=== PATIENT | male | born 1945 | race Caucasian/White ===

== ENCOUNTER 2016-08-26 12:29 | Observation (INO) ==
[2016-08-26] MEDS ORDERED: ONDANSETRON 4 MG/2 ML VIAL IV STA (12:49)
[2016-08-26] MEDS ORDERED: PANTOPRAZOLE 40 MG VIAL IV STA (12:49)
[2016-08-26] MEDS ORDERED: METOCLOPRAMIDE 10 MG/2 ML VIAL IV STA (12:49)
[2016-08-26] MEDS ORDERED: KETOROLAC 30 MG/1 ML VIAL IV STA (12:49)
--- NOTE | 2016-08-26 12:59 | Emergency Department Note ---
Arrival - Arrival Chief Complaint: Extremity Problem Stated Complaint: right sided pain ED Nursing Triage Note: C/O PAIN UNDER RIGHT SHOULDER BLADE WITH ONSET COUPLE MONTHS AGO. PT STATES HE HAS BEEN SEEN FOR SAME COMPLAINT BEFORE. DENIES OTHER COMPLAINTS Mode of Arrival: Ambulatory Limitations: No Limitations Source: Patient Time Seen by Provider: 08/26/16 12:49 - History of Present Illness HPI Narrative: This 70-year-old white male presents with 3 months of right upper trunk pain which can be adjacent to the thoracic spine 1 day and then the next the right upper quadrant and then the next the right lower chest. He is seen several doctors all of which have told him it is probably his gallbladder; however, after 3 months it is hard to believe that no one pursued this given the degree of discomfort the patient experiences every day. The patient denies shortness of breath, diaphoresis, left-sided chest pain, chills, fever, nausea, or vomiting. He does have significant complaints of heartburn, belching, and water brash on a daily basis. He also states that certain moves that he makes causes extreme pain but usually in the area of the thoracic spine rather than elsewhere. Currently he appears in no medical distress. Onset (ago): month(s) (Patient presents 3 months post onset of symptoms) Allergies/Adverse Reactions: Allergies Allergy/AdvReac Type Severity Reaction Status Date / Time Sulfa (Sulfonamide Allergy Swelling Verified 07/18/16 18:30 Antibiotics) of Lip/Tongue/Throat Home Medications: Home Medications Medication Instructions Recorded Confirmed Type Albuterol Inhaler [Proventil 2 puff INH Q4H PRN 08/26/16 08/26/16 History Inhaler] Aspirin EC Tab 81 mg PO DAILY 08/26/16 08/26/16 History Atorvastatin [Lipitor] 40 mg PO BEDTIME 08/26/16 08/26/16 History Budesonide/Formoterol 160-4.5 2 puff INH BID 08/26/16 08/26/16 History [Symbicort 160-4.5] Carvedilol 3.125 mg PO DAILY 08/26/16 08/26/16 History Clopidogrel Bisulfate [Clopidogrel] 75 mg PO DAILY 08/26/16 08/26/16 History Fluticasone 50 Mcg Nasal [place] 1 spray BOTH NARES DAILY 08/26/16 08/26/16 History [Flonase Nasal [place]] Gabapentin Cap/Tab [Neurontin 100 mg PO DAILY 08/26/16 08/26/16 History Cap/Tab] Loratadine Tab [Claritin Tab] 10 mg PO DAILY 08/26/16 08/26/16 History Meloxicam 15 mg PO DAILY 08/26/16 08/26/16 History Mometasone Furoate [Asmanex 220 440 mcg INH DAILY 08/26/16 08/26/16 History mcg Twisthaler] Omeprazole 20 mg PO DAILY 08/26/16 08/26/16 History Review of System - Review of System 12 point system: reviewed and no additional remarkable complaints except as stated - Review of System Constitutional: Present: as per HPI Respiratory: Present: as per HPI Cardiovascular: Present: as per HPI Gastrointestinal: Present: as per HPI Musculoskeletal: Present: as per HPI Medical,Surgical,& Family Hx - Medical History Cardio: History of: Hypertension Neurology: History of: TIA Endocrine: History of: Endocrine Problems (hypoglycemia) Respiratory: History of: Asthma Other: History of: Miscellaneous Medical Problems (varacose veins) - Family History Family History: Reports;: Family Cancer - Social History Smoking Status: Never smoker Frequency of Alcohol Use: None Type of Drug Use: None Exam Physical Examination: GENERAL: Well developed, well nourished elderly white male in no acute distress. HEENT: Normocephalic. No trauma. Moist mucous membranes. EOMI. PERRLA. ENT NML NECK: Supple. No adenopathy. CARDIAC: Regular. No murmurs. Heart rate 71 CHEST: Clear to auscultation. No respiratory distress. O2 sat 98% ABDOMEN: Soft. Minimal right upper quadrant tenderness with extreme palpation. Active bowel sounds. EXTREMITIES: No trauma. Normal ROM. No pedal edema. Significant tenderness with a patch of muscular spasm along the thoracic spine at the right mid scapular level SKIN: No diaphoresis. No rash. NEURO: Alert. Neuro intact. No focal deficits. Vital Signs: Vital Signs Temperature 98.1 F 08/26/16 12:34 Pulse Rate 71 08/26/16 12:34 Respiratory Rate 18 08/26/16 12:34 Blood Pressure 155/89 08/26/16 12:34 O2 Sat by Pulse Oximetry 98 08/26/16 12:34 Course - Consultations Consultation #1: Dr. Pinon consulted for gallbladder disease Consultation #2: Dr. Pinon to admit for elective cholecystectomy Results - Labs CBC & BMP: 08/26/16 12:57 08/26/16 12:57 Labs: I have reviewed the laboratory noted its normal results. - Impressions EKG: Sinus rhythm at 69 with normal SD interval and QRS duration. Normal ST segments normal EKG. - Diagnostic Findings Procedure: Chest x-ray: image reviewed by me, report reviewed by me (Normal chest), Ultrasound: image reviewed by me, report reviewed by me (Gallbladder revealed gallbladder wall thickening with debbie-Sydney fluid but no stones), X-ray : image reviewed by me, report reviewed by me (Thoracic spine revealed anterior wedging at mid thoracic level) Disposition Clinical Impression: Cholecystitis, Thoracic spine wedging/DJD Case discussed with: patient, patient's family Disposition: Still a Patient Condition: Stable Time of Disposition: 15:40
[2016-08-26 13:04] LABS: Basophils # 0.1 10*3/uL (0.0-0.2); Basophils % 0.7 % (0.0-0.8); Eosinophils # 0.3 10*3/uL (0.0-0.87); Eosinophils % 3.3 % (0.00-10.9); Hematocrit 47.7 VOL% (42.0-52.0); Hemoglobin 16.5 GM/DL (14.0-18.0); Immature Granulocytes % 0.6 %; Immature Granulocytes Absolute 0.05 #; Lymphocytes # 2.5 10*3/uL (1.4-4.0); Lymphocytes % 29.6 % (21.2-54.2); Mean Corpuscular HGB Conc 34.6 GM/DL (32-36); Mean Corpuscular Hemoglobin 30 PG (27-34); Mean Corpuscular Volume 86.6 FL (87-102); Mean Platelet Volume 9.6 FL (9.6-12.0); Monocytes # 0.6 10*3/uL (0.11-0.8); Monocytes % 7.2 % (1.7-12.7); Neutrophils % 58.6 % (38.7-73.9); Platelet Count 229 T/CUMM (130-400); Red Blood Count 5.51 MC/CUMM (3.8-5.5); Red Cell Distribution Width 13.1 % (9.3-17.3); White Blood Count 8.5 T/CUMM (4-12)
[2016-08-26 13:28] LABS: Albumin 3.7 G/DL (3.4-5.0); Bilirubin,Total 0.5 MG/DL (0.2-1.0); Calcium 9.1 MG/DL (8.5-10.1); Potassium 3.9 MMOL/L (3.5-5.1); Total Protein 6.8 G/DL (6.4-8.3); Troponin I Only < 0.015 NG/ML (0.00-0.045)
[2016-08-26] MEDS ORDERED: PANTOPRAZOLE 40 MG VIAL IV ONE (13:32)
[2016-08-26] MEDS ORDERED: METOCLOPRAMIDE 10 MG/2 ML VIAL ONE (13:32)
[2016-08-26] MEDS ORDERED: ONDANSETRON 4 MG/2 ML VIAL ONE (13:32)
[2016-08-26] MEDS ORDERED: KETOROLAC 30 MG/1 ML VIAL ONE (13:33)
--- NOTE | 2016-08-26 13:37 | XRay Report ---
PA and lateral chest. Indication: Chest pain. Comparison: July 18, 2016. The heart and mediastinal contours are unremarkable. The pulmonary vasculature is normal. There is no consolidation, pneumothorax, or pleural effusion. Degenerative changes are noted within the shoulders and thoracic spine. Impression: No acute abnormality. PROCEDURE INTERPRETED AT [facility] DEPARTMENT OF RADIOLOGY Final Report Signed by: Dr. Blossom Joe
--- NOTE | 2016-08-26 13:39 | XRay Report ---
Thoracic spine, 4 views. Indication: Back pain. There is a very slight lower thoracic scoliosis, convex to the left. The AP view also demonstrates moderate lateral osteophytes along the right aspect of the spinal column. The lateral view demonstrates normal alignment. Moderate anterior osteophytes are noted at multiple levels. Very slight anterior wedging of mid thoracic vertebra were present on a previous CT of the chest PE study dated July 18, 2016. No lytic or blastic lesion. Impression: Moderate spondylosis. Slight chronic anterior wedging of mid thoracic vertebra. PROCEDURE INTERPRETED AT [facility] DEPARTMENT OF RADIOLOGY Final Report Signed by: Dr. Blossom Joe
--- NOTE | 2016-08-26 14:04 | Ultrasound Report ---
Right upper quadrant ultrasound. Indication: Right upper quadrant pain. Comparison: August 18, 2016. The liver is normal in size and parenchymal echogenicity. No focal liver lesions or intrahepatic biliary ductal dilatation. The common duct measures 4 mm. The gallbladder is contracted. There is wall thickening present at 4 mm. There is fluid around the gallbladder. There is tenderness over the gallbladder. The right kidney presents a normal appearance. The pancreas is obscured by bowel gas. No ascites is seen. Impression: The appearance of the gallbladder has changed. There is more pronounced wall thickening noted at 4 mm, as well as some para cholecystic fluid and tenderness over the gallbladder. No stones are visible, and the gallbladder is partially contracted. Acalculus cholecystitis should be considered clinically. These type findings can be secondary to liver disease, however there are no signs of liver disease on this exam. PROCEDURE INTERPRETED AT [facility] DEPARTMENT OF RADIOLOGY Final Report Signed by: Dr. Blossom Joe
[2016-08-26 14:34] LABS: Apearance,Urine CLEAR (Clear); Bilirubin,Urine Negative (Negative); Blood, Urine Negative (Negative); Glucose,Urine (UA) Negative (Negative); Ketones,Urine Negative (Negative); Mucus,Urine Occasional /LPF (Occasional); Nitrite,Urine Negative (Negative); Protein,Urine Negative; RBC,Urine <1 /HPF (0-4); Squamous Epithelial Cell,Urine Occasional /HPF (0-10); Urine Color Yellow (Yellow); Urine Specific Gravity 1.016 (1.001-1.035); Urine Urobilinogen < 2.0 EU/DL (0.2-1.0); WBC,Urine <1 /HPF (0-6)
--- NOTE | 2016-08-26 15:40 | General Surg History&Physical ---
Assessment and Plan (1) Cholecystitis Status: Acute Assessment and plan: This patient has cholecystitis with normal LFTs. I recommended laparoscopic cholecystectomy. The patient is on Plavix for TIAs and there is a slight increased risk of bleeding but I do not think it is prohibitive. Patient appears to be a good risk candidate for surgery. He also has an umbilical hernia that I recommended repairing at the time of the surgery because it is incarcerated. Patient agrees with all this. I discussed the risks, benefits, and alternatives of the operations proposed and the expected outcomes have been reviewed. In particular, I discussed the risk of bleeding, infection, hernias of the abdominal wall, injury to the intestines or liver, pancreatitis, dropped or retained stones in the abdomen, bile leak, and bile duct injury. The patient 's questions have been answered. I have also discussed the risks of hernia repair Current Visit: Yes History of Present Illness Chief complaint: Abdominal pain History of present illness: Mr. Krause is a 70 year old male with history of asthma and TIAs for which she is on Plavix presents to the hospital with symptoms of acute cholecystitis with confirmed by ultrasound. Home Medications Medication Instructions Recorded Confirmed Type Albuterol Inhaler [Proventil 2 puff INH Q4H PRN 08/26/16 08/26/16 History Inhaler] Aspirin EC Tab 81 mg PO DAILY 08/26/16 08/26/16 History Atorvastatin [Lipitor] 40 mg PO BEDTIME 08/26/16 08/26/16 History Budesonide/Formoterol 160-4.5 2 puff INH BID 08/26/16 08/26/16 History [Symbicort 160-4.5] Carvedilol 3.125 mg PO DAILY 08/26/16 08/26/16 History Clopidogrel Bisulfate [Clopidogrel] 75 mg PO DAILY 08/26/16 08/26/16 History Fluticasone 50 Mcg Nasal [employer] 1 spray BOTH NARES DAILY 08/26/16 08/26/16 History [Flonase Nasal [employer]] Gabapentin Cap/Tab [Neurontin 100 mg PO DAILY 08/26/16 08/26/16 History Cap/Tab] Loratadine Tab [Claritin Tab] 10 mg PO DAILY 08/26/16 08/26/16 History Meloxicam 15 mg PO DAILY 08/26/16 08/26/16 History Mometasone Furoate [Asmanex 220 440 mcg INH DAILY 08/26/16 08/26/16 History mcg Twisthaler] Omeprazole 20 mg PO DAILY 08/26/16 08/26/16 History Allergies Allergy/AdvReac Type Severity Reaction Status Date / Time Sulfa (Sulfonamide Allergy Swelling Verified 07/18/16 18:30 Antibiotics) of Lip/Tongue/Throat Medical,Surgical,& Family Hx - Medical History Cardio: History of: Hypertension Neurology: History of: TIA Endocrine: History of: Endocrine Problems (hypoglycemia) Respiratory: History of: Asthma Other: History of: Miscellaneous Medical Problems (varacose veins) - Family History Family History: Reports;: Family Cancer - Social History Smoking Status: Never smoker Frequency of Alcohol Use: None Type of Drug Use: None Exam - Constitutional Vitals: Period Temp Pulse Resp BP Sys/Salazar Pulse Ox Last 24 Hr 98.1 F 71 18 155/89 98 General appearance: no acute distress, over weight - Head Head exam: Present: normal inspection, normocephalic - Eye Eye exam: Present: EOMI Pupils: Present: CARLOS - ENT ENT exam: Present: normal exam Mouth exam: Present: normal external inspection, normal voice - Neck Neck exam: Present: normal inspection, trachea midline - Respiratory Respiratory exam: Present: clear to auscultation bilaterally. Absent: accessory muscle use, chest wall tenderness - Cardiovascular Cardiovascular exam: Present: RRR. Absent: systolic murmur, tachycardia - GI/Abdominal GI/Abdominal exam: Present: Dee's sign, tenderness, soft. Absent: guarding, rebound - Extremities Exam Extremities exam: Present: normal inspection, normal capillary refill - Back Exam Back exam: Present: normal inspection - Neurological Exam Neurological exam: Present: alert, oriented X3 Speech: Present: normal - Skin Skin exam: Present: normal color, warm - Constitutional Constitutional: Present: as per HPI - EENT Nose, mouth and throat: Present: as per HPI - Cardiovascular Cardiovascular: Present: as per HPI - Respiratory Respiratory: Present: as per HPI - Gastrointestinal Gastrointestinal: Present: as per HPI - Genitourinary Genitourinary: Present: as per HPI - Musculoskeletal Musculoskeletal: Present: as per HPI - Neurological Neurological: Present: as per HPI - Endocrine Endocrine: Present: as per HPI Hematologic/Lymphatic: Present: as per HPI Results - Labs CBC & BMP: 08/26/16 12:57 07/08/17 12:57 - Diagnostic Findings Procedure: Ultrasound: report reviewed by me (Acalculous cholecystitis with wall thickening and pericholecystic fluid.)
[2016-08-26] MEDS ORDERED: HYDROmorphone 2 MG/1 ML VIAL IV PRN (17:10)
[2016-08-26] MEDS ORDERED: ONDANSETRON 4 MG/2 ML VIAL IV PRN (17:10)
[2016-08-26] MEDS ORDERED: ACETAMINOPHEN 325 MG TABLET PO PRN (17:10)
[2016-08-26] MEDS ORDERED: PROMETHAZINE 25 MG/1 ML VIAL IM PRN (17:10)
[2016-08-26] MEDS: LACTATED RINGERS 1,000 ML IV SCH (18:55)
[2016-08-26] MEDS: PIPERACILLIN/TAZOBACTAM 3,375 MG in SODIUM CHLORIDE 0.9% 100 ML IV SCH (18:55)
[2016-08-26] MEDS ORDERED: ALBUTEROL 2.5 MG/3 ML NEB RESP TX PRN (19:00)
[2016-08-26] MEDS: BUDESONIDE/FORMOTEROL 160-4.5 INHALER 6 GM INH SCH (20:22)
[2016-08-26] MEDS: ATORVASTATIN 40 MG TABLET PO SCH (20:22)
[2016-08-27] MEDS: LACTATED RINGERS 1,000 ML IV SCH (01:16)
[2016-08-27] MEDS: PIPERACILLIN/TAZOBACTAM 3,375 MG in SODIUM CHLORIDE 0.9% 100 ML IV SCH ×2 (02:40→16:20)
[2016-08-27] MEDS ORDERED: FAMOTIDINE 20 MG TABLET PO ONE (07:00)
[2016-08-27] MEDS ORDERED: IPRATROPIUM 500 MCG/2.5 ML NEB RESP TX ONE (07:00)
[2016-08-27] MEDS ORDERED: LORazepam 1 MG TABLET PO ONE (07:00)
[2016-08-27] MEDS ORDERED: ALBUTEROL 2.5 MG/3 ML NEB RESP TX ONE (07:00)
--- NOTE | 2016-08-27 08:58 | General Surgery Progress Note ---
Assessment and Plan (1) Cholecystitis Status: Acute Assessment and plan: Plan for laparoscopic cholecystectomy with umbilical hernia repair today. Current Visit: Yes Subjective Patient reports: Present: no new complaints, feels better, afebrile Exam - Constitutional Vitals: Period Temp Pulse Resp BP Sys/Salazar Pulse Ox Last 24 Hr 97.4 F-98.1 F 67-75 17-19 118-155/65-97 93-98 General appearance: no acute distress, over weight - Head Head exam: Present: normal inspection, normocephalic - Eye Eye exam: Present: EOMI Pupils: Present: CARLOS - ENT ENT exam: Present: normal exam Mouth exam: Present: normal external inspection, normal voice - Neck Neck exam: Present: normal inspection, trachea midline - Respiratory Respiratory exam: Present: clear to auscultation bilaterally. Absent: accessory muscle use, chest wall tenderness - Cardiovascular Cardiovascular exam: Present: RRR. Absent: systolic murmur, tachycardia - GI/Abdominal GI/Abdominal exam: Present: normal bowel sounds, tenderness, soft. Absent: Dee's sign, rebound - Extremities Exam Extremities exam: Present: normal inspection, normal capillary refill - Back Exam Back exam: Present: normal inspection - Neurological Exam Neurological exam: Present: alert, oriented X3 Speech: Present: normal - Skin Skin exam: Present: normal color, warm Results - Labs CBC & BMP: 08/26/16 12:57 08/26/16 12:57
[2016-08-27] MEDS ORDERED: NON-FORMULARY MEDICATION (Omeprazole [Omeprazole] 20 MG) PO SCH (09:00)
[2016-08-27] MEDS: CARVEDILOL 3.125 MG TABLET PO SCH (09:45)
[2016-08-27] MEDS ORDERED: ONDANSETRON 4 MG/2 ML VIAL ONE ×2 (11:35→13:18)
[2016-08-27] MEDS ORDERED: GLYCOPYRROLATE 0.4 MG/2 ML VIAL ONE (11:35)
[2016-08-27] MEDS ORDERED: NEOSTIGMINE 10 MG/10 ML VIAL ONE (11:35)
[2016-08-27] MEDS ORDERED: LIDOCAINE 1% 5 ML VIAL ONE (11:35)
[2016-08-27] MEDS ORDERED: ROCURONIUM 100 MG/10 ML VIAL IV ONE (11:35)
[2016-08-27] MEDS ORDERED: PROPOFOL 200 MG/20 ML VIAL IV ONE (11:35)
[2016-08-27] MEDS ORDERED: SUCCINYLCHOLINE 200 MG/10 ML VIAL ONE (11:35)
[2016-08-27] MEDS ORDERED: BUPIVACAINE 0.25% /EPI 10 ML VIAL ONE (11:58)
[2016-08-27] MEDS ORDERED: LIDOCAINE 1%/EPI INJ 20 ML VIAL ONE (11:58)
[2016-08-27] MEDS ORDERED: TISSUE ADHESIVE 1 EACH APPLICATOR TOP ONE (12:23)
[2016-08-27] MEDS ORDERED: BACITRACIN OINT 0.9 GM PACK TOP ONE (12:46)
--- NOTE | 2016-08-27 12:56 | Operative Note ---
Date of procedure: 08/27/16 Pre-op diagnosis: Symptomatic cholelithiasis with symptomatic umbilical hernia Post-op diagnosis: same Procedure: Preoperative diagnosis 1. Symptomatic cholelithiasis 2. Symptomatic umbilical hernia chronically incarcerated Postoperative diagnosis Same Procedures performed 1. Laparoscopic cholecystectomy 2. Primary repair of umbilical hernia Findings Acute and chronic cholecystitis was seen. The critical view of safety was obtained prior to placing clips on the cystic duct and cystic artery. The umbilical hernia was repaired primarily with 0 Vicryl sutures. The neck of the hernia defect measured 1 cm Complications None apparent Specimen Gallbladder Anesthesia GETA Blood loss 5 mL Indications The patient was admitted with symptomatic cholelithiasis and a symptomatic incarcerated umbilical hernia. The risks, benefits, and alternatives of the operation were discussed with the patient in detail, and the expected outcomes were reviewed. In particular, the risk of bowel injury, liver injury, bile duct leak and bile duct injury, as well as pancreatitis and retained or drop stones were discussed in detail. All the patient's questions were answered. He elected to proceed with the operation. Description of procedure The patient was taken to the operating room and transferred to the operating table in the supine position. Pressure points were padded and SCDs were placed to bilateral lower extremities. General endotracheal anesthesia was administered. The abdomen was prepped chlorhexidine and draped sterilely. Preoperative antibiotics were administered, a timeout was performed. The abdomen was entered in an infraumbilical location with an open technique. Local anesthetic was administered and an 11 blade scalpel was used to make an infraumbilical incision. The hernia sac was dissected out and the neck of the hernia was dissected at the fascial level measuring about 1 cm. The umbilical stalk was from the hernia sac with electrocautery. The fascial edges were freed up in a 11 mm Trocar Was Placed. The abdomen was insufflated to 15 mmHg with an initial insufflation pressure of 2 mmHg. Diagnostic laparoscopy was performed. There is no evidence of Veress needle or trocar injury. The patient was placed in reverse Trendelenburg and left side rolled down position. Under direct visualization, and after local anesthetic was administered, a 5 mm midepigastric trocar and 2 right subcostal 5 mm trochars were placed. The gallbladder was chronically inflamed with adhesions between the omentum and the gallbladder present. The adhesions were taken down with electrocautery and sharp dissection. The gallbladder was grasped at the fundus and infundibulum. The cystic plate peritoneum was dissected into the critical view of safety was obtained. The cystic duct and cystic artery were clipped twice initially and once laterally and divided laparoscopically with scissors between clips. Gallbladder was removed from the gallbladder fossa using hook electrocautery. The gallbladder was placed in a Endo Catch retrieval bag through the 11 mm trocar and removed through the trocar with no significant fascial extension of the incision. The gallbladder fossa was suction irrigated until the effluent was clear. The CO2 was released from the abdomen and the trochars were removed. The umbilical hernia defect was closed with interrupted 0 Vicryl sutures in the umbilical stalk was reapproximated to the fascia with 4-0 Monocryl sutures. The skin incisions were closed with 4-0 Monocryl subcuticular suture and sterile skin glue. A compressive gauze dressing was placed at the bellybutton to assist in prevention of postoperative seroma. The patient was awakened from anesthesia and transferred to recovery. Postoperative plan Advance diet as tolerated Pain control Anesthesia: RENE, local Surgeon / Physician: Aries Pinon Estimated blood loss: minimal Specimens: other (gallbladder) Condition: stable Disposition: PACU Results - Labs CBC & BMP: 08/26/16 12:57 08/26/16 12:57 Discharge Plan - Discharge Data Disposition: Disch To Home/Self Care Condition at Discharge: Stable Discharge Diet: advance to your usual diet Activity: no lifting Hygiene: may shower Weight Bearing at Discharge: weight bear as tolerated Driving: other (Do not drive or operate heavy machinery for at least 24 hours and after you are off of narcotic pain medications.) Contact your physician if you experience:: fever over 101, Difficulty voiding, Redness or swelling, Nausea/Vomiting, Shortness of breath, Bleeding, pain uncontrolled by pain medications Wound / Dressing Care Instructions: It is okay to shower. Do not scrub the incision aggressively or submerge it under water. Remove the gauze dressing at the bellybutton in 2 days and it is okay to shower afterwards. Place a compressive cotton ball dressing in the bellybutton and secure with tight tape. Do this until you are seen back in clinic. - Discharge Medications [place]apentin Cap/Tab [Neurontin Cap/Tab] 100 mg PO DAILY capsule HYDROcodone/ACETAMIN 7.5-325 [[place] 7.5-325] 1 tablet PO Q4H PRN #30 tablet PRN Reason: Pain Moderate (4-7) Budesonide/Formoterol 160-4.5 [Symbicort 160-4.5] 2 puff INH BID inhaler Continue Clopidogrel Bisulfate [Clopidogrel] 75 mg PO DAILY Aspirin EC Tab 81 mg PO BEDTIME Meloxicam 15 mg PO DAILY Fluticasone 50 Mcg Nasal [place] [Flonase Nasal [place]] 1 spray BOTH NARES DAILY Carvedilol 3.125 mg PO DAILY Loratadine Tab [Claritin Tab] 10 mg PO DAILY Atorvastatin [Lipitor] 40 mg PO BEDTIME Albuterol Inhaler [Proventil Inhaler] 2 puff INH Q4H PRN PRN Reason: Shortness Of Breath/Wheezing Mometasone Furoate [Asmanex 220 mcg Twisthaler] 440 mcg INH DAILY - Follow Up or Referral Follow Up: Aries Pinon MD [Physician] - 2 Weeks - Forms/Instructions
[2016-08-27] MEDS ORDERED: HYDROmorphone 2 MG/1 ML VIAL ONE (13:18)
[2016-08-27] MEDS ORDERED: hydrALAZINE 20 MG/1 ML VIAL ONE (13:18)
[2016-08-27] MEDS: HYDROmorphone 2 MG/1 ML VIAL IV PRN ×2 (13:20→14:00)
[2016-08-27] MEDS ORDERED: ONDANSETRON 4 MG/2 ML VIAL IV PRN (13:22)
[2016-08-27] MEDS ORDERED: SODIUM CHLORIDE 0.9% 1,000 ML IV SCH (13:30)
[2016-08-27] MEDS ORDERED: ROPIVACAINE 0.5% 30 ML VIAL ONE (13:50)
[2016-08-27] MEDS ORDERED: ACETAMINOPHEN 1,000 MG/100 ML VIAL IV ONE (14:20)
[2016-08-27] MEDS ORDERED: KETOROLAC 30 MG/1 ML VIAL ONE ×2 (14:20→15:22)
--- NOTE | 2016-08-27 14:28 | EKG Report ---
Stationary ECG Study [facility] ER Test Date: 08/26/2016 1:34:35 PM Pat Name: KENDALL BAIG Department: Room: 337 Gender: M Group President: : 1945 Requested by: Yoel Dinero Order Number: [id number] Reading MD: CHERYLE ESQUIVEL Intervals [place] Rate: 69 P: -5 ID: [id number] QRS: 24 QRSD: 86 T: 7 QT: 374 QTc: 393 Interpretive Statements SINUS RHYTHM Electronically Signed On 08-27-16 15:44:15 CDT by CHERYLE ESQUIVEL [email or web address]
[2016-08-27] MEDS ORDERED: ACETAMINOPHEN INJ 1,000 MG in PREMIX 1 EACH IV ONE (14:29)
[2016-08-27] MEDS ORDERED: hydrALAZINE 20 MG/1 ML VIAL IV ONE (14:29)
[2016-08-27] MEDS ORDERED: KETOROLAC 30 MG/1 ML VIAL IV ONE (14:30)
--- NOTE | 2016-08-27 14:33 | XRay Report ---
Portable chest. Indication: Shortness of breath. Postop. Comparison: August 26, 2016. The film is obtained in expiration. There is worsened elevation of the right hemidiaphragm. Linear areas of atelectasis are noted within both lung bases. Vascular crowding. No consolidation. Impression: Expiratory chest. Basilar atelectasis. PROCEDURE INTERPRETED AT [facility] DEPARTMENT OF RADIOLOGY Final Report Signed by: Dr. Blossom Joe
[2016-08-27] MEDS ORDERED: KETOROLAC 30 MG/1 ML VIAL IM ONE (15:36)
[2016-08-27] MEDS ORDERED: ALBUTEROL/IPRATROPIUM 3 ML NEB RESP TX ONE (15:37)
[2016-08-27] MEDS: MOMETASONE 220 MCG/PUFF INHALER 14 DOSE INH SCH (16:20)
[2016-08-27] MEDS: ASPIRIN EC 81 MG TABLET PO SCH (16:20)
[2016-08-27] MEDS: FLUTICASONE 50 MCG NASAL SPRAY 16 GM BOTTLE BOTH NARES SCH (16:21)
[2016-08-27] MEDS: MELOXICAM 7.5 MG TABLET PO SCH (16:21)
[2016-08-27] MEDS: PANTOPRAZOLE 40 MG TABLET PO SCH (16:21)
[2016-08-27] MEDS: LORATADINE 10 MG TABLET PO SCH (16:21)
[2016-08-27] MEDS: GABAPENTIN 100 MG CAPSULE PO SCH (16:21)
[2016-08-27] MEDS: BUDESONIDE/FORMOTEROL 160-4.5 INHALER 6 GM INH SCH ×2 (16:22→21:03)
[2016-08-27] MEDS: ENOXAPARIN 40 MG/0.4 ML SYRINGE SUBCUT SCH (16:22)
[2016-08-27] MEDS: DEXT 5% NACL 0.45% KCL 20 MEQ 20 MEQ/1,000 ML BAG IV SCH ×2 (18:01→19:04)
[2016-08-27] MEDS ORDERED: MIDAZOLAM 2 MG/2 ML VIAL ONE (19:21)
[2016-08-27] MEDS ORDERED: fentaNYL 100 MCG/2 ML VIAL ONE (19:21)
[2016-08-27] MEDS: ATORVASTATIN 40 MG TABLET PO SCH (21:03)
[2016-08-28] MEDS: DEXT 5% NACL 0.45% KCL 20 MEQ 20 MEQ/1,000 ML BAG IV SCH (02:09)
[2016-08-28 05:59] LABS: Basophils % 0.3 % (0.0-0.8); Eosinophils # 0.1 10*3/uL (0.0-0.87); Eosinophils % 0.9 % (0.00-10.9); Hematocrit 37.9 VOL% (42.0-52.0); Hemoglobin 12.4 GM/DL (14.0-18.0); Immature Granulocytes % 0.4 %; Immature Granulocytes Absolute 0.04 #; Lymphocytes # 1.8 10*3/uL (1.4-4.0); Lymphocytes % 18.1 % (21.2-54.2); Mean Corpuscular HGB Conc 32.7 GM/DL (32-36); Mean Corpuscular Hemoglobin 29 PG (27-34); Mean Corpuscular Volume 89.4 FL (87-102); Mean Platelet Volume 10.3 FL (9.6-12.0); Monocytes # 0.8 10*3/uL (0.11-0.8); Monocytes % 7.4 % (1.7-12.7); Neutrophils # 7.4 10*3/uL (1.4-7.4); Neutrophils % 72.9 % (38.7-73.9); Platelet Count 183 T/CUMM (130-400); Red Blood Count 4.24 MC/CUMM (3.8-5.5); Red Cell Distribution Width 13.4 % (9.3-17.3); White Blood Count 10.1 T/CUMM (4-12)
[2016-08-28 06:46] LABS: Hypochromasia 1+; Platelet Estimate Adequate
[2016-08-28 08:02] LABS: Calcium 8.5 MG/DL (8.5-10.1); Magnesium 1.9 MG/DL (1.8-2.4); Osmolality,Calculated 276.5 MOS/KG (273-304); Potassium 3.8 MMOL/L (3.5-5.1)
[2016-08-28] MEDS: GABAPENTIN 100 MG CAPSULE PO SCH (09:12)
[2016-08-28] MEDS: MELOXICAM 7.5 MG TABLET PO SCH (09:12)
[2016-08-28] MEDS: CARVEDILOL 3.125 MG TABLET PO SCH (09:13)
[2016-08-28] MEDS: LORATADINE 10 MG TABLET PO SCH (09:14)
[2016-08-28] MEDS: PANTOPRAZOLE 40 MG TABLET PO SCH (09:14)
[2016-08-28] MEDS: ASPIRIN EC 81 MG TABLET PO SCH (09:14)
--- NOTE | 2016-08-28 09:14 | Discharge Summary ---
Hospital Course - Hospital Course Hospital Course: Mr. Krause is a 70-year-old male with history of asthma and TIAs on Plavix admitted by Dr. Pinon with acute cholecystitis confirmed by ultrasound. He was taken to the OR on 08/27/2016 for laparoscopic cholecystectomy and primary repair of umbilical hernia by Dr. Pinon. Patient is doing very well postoperatively. He is ambulating, tolerating a diet, and his pain is well controlled. His abdomen is soft and appropriately tender and his incisions look good. He will be discharged home with some pain medicine and a 2 week follow-up with Dr. Pinon. Care coordination, chart review, and completed discharge paperwork took approximately 30 minutes. - Time spent with patient Time with patient DS: Greater than 30 minutes Diagnosis - Discharge Diagnosis (1) Acute cholecystitis Status: Acute (2) Umbilical hernia repair Status: Acute (3) Asthma Status: Acute (4) History of TIAs Status: Acute Specialty Discharge - Follow Up or Referrals Follow up with: Aries Pinon MD [Physician] - 2 Weeks Discharge Plan - Discharge Data Disposition: Disch To Home/Self Care Condition at Discharge: Stable Discharge Diet: advance to your usual diet Activity: increase activity as tolerated, no lifting Hygiene: may shower Driving: other (no driving if taking pain pills) Contact your physician if you experience:: fever over 101, Nausea/Vomiting - Discharge Medications New [place]ap[place] Cap/Tab [Neurontin Cap/Tab] 100 mg PO DAILY capsule HYDROcodone/ACETAMIN 7.5-325 [[place] 7.5-325] 1 tablet PO Q4H PRN #30 tablet PRN Reason: Pain Moderate (4-7) Budesonide/Formoterol 160-4.5 [Symbicort 160-4.5] 2 puff INH BID inhaler Continue Clopidogrel Bisulfate [Clopidogrel] 75 mg PO DAILY Aspirin EC Tab 81 mg PO BEDTIME Meloxicam 15 mg PO DAILY Fluticasone 50 Mcg Nasal [place] [Flonase Nasal [place]] 1 spray BOTH NARES DAILY Carvedilol 3.125 mg PO DAILY Loratadine Tab [Claritin Tab] 10 mg PO DAILY Atorvastatin [Lipitor] 40 mg PO BEDTIME Albuterol Inhaler [Proventil Inhaler] 2 puff INH Q4H PRN PRN Reason: Shortness Of Breath/Wheezing Mometasone Furoate [Asmanex 220 mcg Twisthaler] 440 mcg INH DAILY - Follow Up or Referral Follow Up: Aries Pinon MD [Physician] - 2 Weeks - Forms/Instructions Instructions: Laparoscopic Cholecystectomy (DC) Exam - Constitutional Vitals: Period Temp Pulse Resp BP Sys/Salazar Pulse Ox Last 24 Hr 97.4 F-99.2 F 57-101 16-20 125-168/62-110 90-97 Exam: 70-year-old male, no acute distress, alert and oriented Chest clear CV regular rate and rhythm Abdomen soft, appropriately tender, incisions look good Extremities no edema Discharge Results Labs on day of discharge: Labs from last 24 hours 08/28/16 08/28/16 06:38 05:33 WBC 10.1 RBC 4.24 D Hgb 12.4 L D Hct 37.9 L MCV 89.4 MCH 29 MCHC 32.7 RDW 13.4 Plt Count 183 D MPV 10.3 Neut % (Auto) 72.9 Lymph % (Auto) 18.1 L [place] % (Auto) 7.4 Eos % (Auto) 0.9 Baso % (Auto) 0.3 Neut # (Auto) 7.4 Lymph # (Auto) 1.8 [place] # (Auto) 0.8 Eos # (Auto) 0.1 Baso # (Auto) 0.0 Immature Gran % 0.4 Nucleated RBC % 0.0 Immature Gran # 0.04 Nucleated RBCs # 0.00 Platelet Estimate Adequate Hypochromasia 1+ Sodium 139 Potassium 3.8 Chloride 106 Carbon Dioxide 29 Anion Gap 7.8 BUN 9 Creatinine 1.20 GFR Calculation 77 BUN/Creatinine Ratio 7.00 Glucose 124 H Calculated Osmolality 276.5 Calcium 8.5 Magnesium 1.9 DS: Provider Date of admission: 08/26/16 15:34 Primary care physician: Lewis Angel Attending physician on admission: Aries Pinon MD Discharging clinician: GRAYSON Lee Expected date of discharge: 08/28/16
[2016-08-28] MEDS: FLUTICASONE 50 MCG NASAL SPRAY 16 GM BOTTLE BOTH NARES SCH (09:16)
[2016-08-28] MEDS: MOMETASONE 220 MCG/PUFF INHALER 14 DOSE INH SCH (09:17)
[2016-08-28] MEDS: BUDESONIDE/FORMOTEROL 160-4.5 INHALER 6 GM INH SCH (09:18)
[2016-08-28] MEDS: ENOXAPARIN 40 MG/0.4 ML SYRINGE SUBCUT SCH (09:56)
[2016-08-28 11:43] VITALS: BP 139/79
--- NOTE | 2016-08-30 13:10 | Pathology Report from [facility] ---
[facility] ACCESSION # : [id number] PATIENT NAME : Tracy Baig ORDERING DR : Aries Pinon MD CLINICAL HX: Cholecystitis POST-OP DX: Same SPECIMEN INFO: Gallbladder GROSS DESCRIPTION: Received in formalin labeled GUILHERME BAIG is a 7.5 x 2.8 cm intact gallbladder. The serosa is fatty black bile stained green. The gallbladder wall has a thickness of 0.2 cm. The mucosa is dark green granular with a few yellow polypoid areas present measuring up to 0.2 cm. The lumen contains viscous dark green bile with no stones identified. [employer] sections are submitted in one cassette. DIAGNOSIS FOR TRACY BAIG: GALLBLADDER, CHOLECYSTECTOMY: Chronic cholecystitis. COLLECTED DATE: 08/28/2016 [facility] REPORT DATE: 08/29/2016 ELECTRONICALLY SIGNED BY: Alec Mccabe M.D. 08/29/2016 - 9:28:09 SHERIN
== END 2016-08-28 12:06 | disposition home or self-care (01) ==
LOC: N.EDINP 12:29 → N.ED 12:29 → N.EDINP 14:28 → N.3E 17:07
PROVIDERS: ADMIT Surgery; ATTEND Surgery
PROC: LAPCHOL (2016-08-27 11:35)

== ENCOUNTER 2017-05-22 17:53 | Inpatient (IN) ==
[2017-05-22] MEDS ORDERED: ASPIRIN 325 MG TABLET PO STA (19:09)
[2017-05-22] MEDS ORDERED: ASPIRIN 325 MG TABLET ONE (19:23)
[2017-05-22 20:07] LABS: Basophils # 0.1 10*3/uL (0.0-0.2); Eosinophils # 0.5 10*3/uL (0.0-0.87); Hematocrit 47.7 VOL% (42.0-52.0); Hemoglobin 16.2 GM/DL (14.0-18.0); Immature Granulocytes % 0.6 %; Immature Granulocytes Absolute 0.07 #; Lymphocytes # 3.3 10*3/uL (1.4-4.0); Lymphocytes % 28.1 % (21.2-54.2); Mean Corpuscular Hemoglobin 30 PG (27-34); Mean Corpuscular Volume 87.8 FL (87-102); Mean Platelet Volume 10.1 FL (9.6-12.0); Monocytes % 8.7 % (1.7-12.7); Neutrophils # 6.7 10*3/uL (1.4-7.4); Neutrophils % 57.6 % (38.7-73.9); Platelet Count 239 T/CUMM (130-400); Red Blood Count 5.43 MC/CUMM (3.8-5.5); Red Cell Distribution Width 12.7 % (9.3-17.3); White Blood Count 11.6 T/CUMM (4-12)
[2017-05-22 20:18] LABS: PT Patient Result 10.8 SECS; Partial Thromboplastin Time 26.8 SECS (0-40)
[2017-05-22 20:27] LABS: Apearance,Urine CLEAR (Clear); Bilirubin,Urine Negative (Negative); Blood, Urine Negative (Negative); Glucose,Urine (UA) Negative (Negative); Ketones,Urine Negative (Negative); Nitrite,Urine Negative (Negative); Protein,Urine Negative; Urine Color Straw (Yellow); Urine Specific Gravity 1.009 (1.001-1.035); Urine Urobilinogen < 2.0 EU/DL (0.2-1.0); WBC,Urine <1 /HPF (0-6)
[2017-05-22] MEDS ORDERED: METOPROLOL TARTRATE 25 MG TABLET ONE (20:49)
[2017-05-22 20:56] LABS: Barbiturates Screen,Urine Negative (Negative); Benzodiazepines Screen,Urine Negative (Negative); Cannabinoid Screen,Urine Negative (Negative); Opiate Screen,Urine Negative (Negative); Phencyclidine Screen,Urine Negative (Negative)
[2017-05-22 20:58] LABS: Alanine Aminotransferase 22 U/L (16-61); Albumin 3.9 G/DL (3.4-5.0); Alkaline Phosphatase 70 U/L (45-117); Aspartate Amino Transferase 20 U/L (0-37); Blood Urea Nitrogen 20 MG/DL (7-18); Calcium 9.1 MG/DL (8.5-10.1); Glucose 86 MG/DL (74-106); Osmolality,Calculated 284.1 MOS/KG (273-304); Potassium 3.9 MMOL/L (3.5-5.1); Sodium 142 MMOL/L (136-145); Total Protein 6.8 G/DL (6.4-8.3)
[2017-05-23] MEDS ORDERED: METOPROLOL TARTRATE 25 MG TABLET PO STA (00:06)
[2017-05-23] MEDS ORDERED: ONDANSETRON 4 MG/2 ML VIAL IV PRN (00:45)
[2017-05-23] MEDS ORDERED: MORPHINE 4 MG/1 ML VIAL IV PRN (00:45)
[2017-05-23] MEDS ORDERED: hydrALAZINE 20 MG/1 ML VIAL IV PRN (00:45)
[2017-05-23] MEDS ORDERED: SODIUM CHLORIDE 0.9% 1,000 ML IV SCH (00:45)
[2017-05-23] MEDS ORDERED: ALBUTEROL/IPRATROPIUM 3 ML NEB RESP TX PRN (00:45)
[2017-05-23] MEDS: ALBUTEROL/IPRATROPIUM 3 ML NEB RESP TX SCH ×3 (01:27→13:18)
[2017-05-23 01:47] LABS: Risk Ratio 4.36; VLDL CHOLESTEROL 39.4 MG/DL
[2017-05-23] MEDS: predniSONE 20 MG TABLET PO SCH ×2 (01:50→09:09)
[2017-05-23] MEDS ORDERED: FLUTICASONE 50 MCG NASAL SPRAY 16 GM BOTTLE BOTH NARES SCH (09:00)
[2017-05-23] MEDS ORDERED: DOCUSATE SODIUM 100 MG CAPSULE PO SCH (09:00)
[2017-05-23] MEDS ORDERED: CLOPIDOGREL 75 MG TABLET PO SCH (09:00)
[2017-05-23] MEDS ORDERED: ENOXAPARIN 40 MG/0.4 ML SYRINGE SUBCUT SCH (09:00)
[2017-05-23] MEDS ORDERED: CARVEDILOL 3.125 MG TABLET PO SCH (09:00)
[2017-05-23] MEDS ORDERED: PANTOPRAZOLE 40 MG TABLET PO SCH (09:00)
[2017-05-23] MEDS ORDERED: amLODIPine 5 MG TABLET PO SCH (11:30)
[2017-05-23] MEDS ORDERED: LORazepam 2 MG/1 ML VIAL IV ONE (14:22)
[2017-05-23] MEDS ORDERED: diphenhydrAMINE 50 MG/1 ML VIAL IV ONE (14:22)
[2017-05-23 17:43] VITALS: BP 176/83
[2017-05-23] MEDS ORDERED: ASPIRIN EC 81 MG TABLET PO SCH (21:00)
[2017-05-23] MEDS ORDERED: OMEGA 3 ACID ETHYL ESTERS 1 GM CAPSULE PO SCH (21:00)
[2017-05-23] MEDS ORDERED: LORATADINE 10 MG TABLET PO SCH (21:00)
[2017-05-23] MEDS ORDERED: ATORVASTATIN 40 MG TABLET PO SCH (21:00)
[2017-05-24] MEDS ORDERED: predniSONE 20 MG TABLET PO SCH (09:00)
== END 2017-05-23 18:52 | disposition home or self-care (01) | DRG 69 ==
LOC: N.ED 17:53 → N.EDINP 22:51 → N.4E 05-23 00:10
PROVIDERS: ADMIT Internal Medicine; ATTEND Internal Medicine